=== PATIENT | female | born 1940 | race Caucasian/White ===

== ENCOUNTER 2024-09-12 13:40 | Emergency (ER) | payer MEDICARE ==
[~2024-09-12] VITALS: Ht 167.6 cm; Wt 74.8 kg
[2024-09-12 13:50] VITALS: PULSE 69; RESP 18; TEMP 98.5; O2SAT 98
== END 2024-09-12 14:57 | disposition home or self-care (01) ==
LOC: ER 14:19
DX: I48.20 Chronic atrial fibrillation, unspecified (principal); Z95.4 Presence of other heart-valve replacement; I10 Essential (primary) hypertension; I50.9 Heart failure, unspecified; I48.91 Unspecified atrial fibrillation
CPT/HCPCS: 93005; 99283